=== PATIENT | female | born 1975 | race Caucasian/White ===

== ENCOUNTER 2016-10-19 04:57 | Observation (INO) | payer BC ==
--- NOTE | ~2016-10-19 | CO ---
Unit #: [id number] #: [id number] Patient: FLORIDA PERRY [id number] [facility]. [place], [place] [address] [id number] I MR#: [id number] NAME: FLORIDA PERRY ROOM: 334 Age: 41 Sex: F Admission Date: 10/19/2016 : 1975 Attending Physician: Mirela Kapadia M.D. Consultation Date: 10/19/2016 CONSULTATION REPORT CONSULT REQUESTING PHYSICIAN Dr. Kapadia. REASON FOR CONSULTATION Chest pain. HISTORY OF PRESENT ILLNESS This is a 41-year-old white female with past medical history of insomnia; anxiety; iron deficiency anemia; obesity, status post lap-band surgery; hypertension. She was admitted on 10/19/2016 with complaints of chest pain that occurred on Friday and were intermittent in nature; however, have gotten progressively more constant and more intense. Ms. Perry rates her pain as a sharp stabbing in nature and did have radiation to her left arm with associated shortness of breath and nausea. It began under her left anterior breast and as it increased in intensity and occurrence. She decided to be admitted for evaluation. On interview, she reports that she had a stress test 1 month ago; however, she cannot remember where that test was completed. After several prompts, she is somewhat sure it was done at [facility], as where her primary care provider's office is. Upon interview today on 10/19/2016, in room 334, she is chest pain free. EKG was checked on 10/19/2016, shows sinus tachycardia with a rate of 105, but otherwise within normal limits. Troponin was less than 0.05 x2. She tells me that chest pain just started on Friday, was not associated with any activity nor did any activity make it worse or better. She did report that it max the intensity of the chest pain peaked on Friday and lasted more than an hour while she was at work. She denies any palpitations and denies any syncope. She has no relieving factors, but she did tell me that she took three nitroglycerins which helped her little bit. PAST MEDICAL HISTORY 1. Insomnia. 2. Anxiety and depression. 3. Iron deficiency anemia. 4. Lap-band surgery. 5. Obesity. 6. Hypertension. 7. Menorrhagia, she has had multiple transfusions. PAST SURGICAL HISTORY Includes a lap-band in 2006 and a section. Unit #: [id number] #: [id number] Patient: FLORIDA PERRY MEDICATIONS Include Xanax 1 mg t.i.d. as needed and Lopressor 50 mg b.i.d. SOCIAL HISTORY Apparently, she is a never smoker and only drinks alcohol on very rare social occasions. She denies any illicit drug use. She has 4 children and lives in [place]. 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 FAMILY HISTORY Her father has congestive heart failure. Mother and siblings are generally healthy. REVIEW OF SYSTEMS 12-point review of systems was noted as above in the HPI. PHYSICAL EXAMINATION VITAL SIGNS: Temperature 97.3, heart rate 91, respirations 15, blood pressure 122/80. GENERAL: She is a well-developed, obese white female, who is in a very lethargic and sleepy state, in no acute distress upon interview. HEENT: Head is atraumatic and normocephalic. Pupils are equal, round, and reactive to light and accommodation with extraocular movements are intact. Oral mucosa membranes are pink and dry. NECK: Obese with no JVD noted. No lymphadenopathy and no bruits. LUNGS: Clear to auscultation with decreased respiratory effort. CARDIOVASCULAR: She is in a regular rate with regular rhythm. S1, S2 noted. No murmurs, gallops, or rubs are appreciated. ABDOMEN: Soft and obese with positive bowel sounds. EXTREMITIES: She is able to move all extremities with no obvious edema. Positive pedal pulses. DIAGNOSTIC STUDIES IMAGING STUDIES: A CT angiogram of the chest on 10/19/2016, impression: 1. Poor contrast opacity of the medium and small pulmonary arteries within the mid and peripheral lung zones, which cannot be assessed for PE on this study. There was no evidence of large central pulmonary embolism within the main pulmonary artery to jaivd region, central pulmonary arteries. No active disease in the chest. Heart size is normal. No pericardial effusion. Normal caliber thoracic aorta. 2. Linear scarring or atelectasis in the left lung base. Lungs are clear. Single view of the chest dated 10/19/2016 showed no acute abnormality. CARDIOVASCULAR STUDIES: EKG on 10/19/2016 showed sinus tach with a rate of 105, otherwise normal. LABORATORY RESULTS: Chemistry is unremarkable. There was an elevated ALT of 52 and alkaline phosphatase of 174. Troponin at 5:13 on 10/19/2016, which was less than 0.05. On repeat at 07:02 a.m., it was less than 0.05 and again at 13:15, was less than 0.03. PT was 10, INR was 1.0, D-dimer 542. WBC 5.7, hemoglobin 9.4, hematocrit 30.7, platelet count 267. A tox screen was positive for benzodiazepines and opiates. IMPRESSION 1. Atypical type chest pain. 2. Recent normal stress test. 3. Normal EKG. 4. Troponin less than 0.05 x2 and less than 0.03 x1. Unit #: [id number] #: [id number] Patient: FLORIDA PERRY 5. Obesity. 6. Status post lap-band surgery. 7. History of anxiety disorder. PLAN I will attempt to obtain records from [facility], where she had a recent what she thought was a negative stress test, and trend her troponins. Otherwise, she is stable at this standpoint from cardiovascular perspective. Anticipate discharge later today if troponins are negative. With recent cardiac workup, she will not need further ischemic workup. A long discussion was done by Dr. Rojas to the patient regarding her use of Xanax 1 mg t.i.d. and the need to possibly decrease that dose as she is very lethargic. She follows with Dr. Singer. We recommended her seeing Dr. Singer soon and decreasing her Xanax dose. She is severely anemic upon record review; however, today her hemoglobin was 9.4. This could be a contributing factor to any type of chest pain; however, it is probably likely musculoskeletal in nature. Her use of benzos including 1 mg Xanax t.i.d. is causing her to be overly self-medicated. The patient is agreeable to follow up with Dr. Singer and is agreeable to attempt to decrease her use of Xanax. Thank you for this consult. Dictated by... Clari Tubbs APRN for Abraham Adkins/david TD: 10/19/2016 17:24 JOB #: [id number] CC: [facility] CONSULTATION REPORT X X CONSULTATION REPORT
--- NOTE | ~2016-10-19 | CT16 ---
[facility] A Service of [facility] RADIOLOGY TEXT RESULTS PATIENT: FLORIDA DEL REAL LOCATION: [facility] 334-01 : [birth year] UNIT #: [id number] AGE: [address]: EUGENIA KAPADIA MD SEX: F ORDER DR: [id number] [facility]. [place], [place] [address] [id number] I MR#: [id number] Acc #: [id number] NAME: FLORIDA DEL REAL : 1975 SEX: F STUDY DATE/TIME: 10/19/2016 8:05 UNIT: C3A PCU ROOM: [facility] STUDY DESCRIPTION: CT Angio Chest for PE Attending Physician: Eugenia Kapadia M.D. Ordering Physician: Hernesto Low M.D. Primary Care Physician: Primary Care Physician No MEDICAL IMAGING REPORT This report is preliminary unless electronic signature is present EXAM CT chest with contrast, pulmonary arteriography protocol, 10/19/2016. HISTORY 41-year-old female in the ED complaining of 1-week history of left side chest pain. Elevated D-dimer. TECHNIQUE CT examination of the chest was performed with IV contrast using pulmonary arteriography protocol. 3-D CTA images of the pulmonary arteries were reformatted. This CT exam was performed with one or more of the following radiation dose reduction techniques: automatic exposure control, adjustment of mA and/or kV according to patient size, and iterative reconstruction. COMPARISON CTA chest, 04/21/2016. Ventilation/perfusion lung scans 04/21/2016 and 05/24/2016. FINDINGS There is poor contrast opacification of the pulmonary arteries. Medium and smaller pulmonary arteries within the mid and peripheral lung zones cannot be assessed on this exam. There is no evidence of a large central pulmonary embolism within the main pulmonary arteries or central hilar pulmonary arteries. Thoracic aorta is normal in caliber. Heart size normal. No pericardial effusion. Mild linear scarring or atelectasis left posterior lung base. The lungs are otherwise expanded and clear. There is no pleural effusion. No mass or adenopathy is seen within the mediastinum or pulmonary javid. No rib [facility] A Service of [facility] RADIOLOGY TEXT RESULTS PATIENT: FLORIDA DEL REAL LOCATION: C3A 334-01 : [birth year] UNIT #: [id number] AGE: [address]: EUGENIA KAPADIA MD SEX: F ORDER DR: fracture or other chest wall lesion. Limited upper abdominal images show a laparoscopic band device in place. Cholecystectomy. IMPRESSION 1. As on the previous study of 04/21/2016, there is poor contrast opacification of the medium and smaller pulmonary arteries within the mid and peripheral lung zones, these arteries cannot be assessed for PE on this study. There is no evidence of large central pulmonary embolism within the main pulmonary arteries or hilar region central pulmonary arteries. 2. No active disease in the chest. Heart size normal. No pericardial effusion. Normal-caliber thoracic aorta. 3. Linear scarring or atelectasis left lung base. Lungs clear. Dictated by... Lucius Walton M.D. THIS IS AN ELECTRONICALLY VERIFIED REPORT Lucius Walton M.D. at 10/19/2016 3:01 PM Laura TD: 10/19/2016 11:36 JOB #: [id number] MEDICAL IMAGING REPORT COPY
--- NOTE | ~2016-10-19 | DS ---
Unit #: [id number] #: [id number] Patient: FLORIDA PERRY [id number] [address] [address] [id number] I MR#: [id number] NAME: FLORIDA PERRY ROOM: 334 Age: 41 Sex: F Admission Date: 10/19/2016 : 1975 Discharge Date: 10/20/2016 Attending Physician: Mirela Kapadia M.D. Primary Care Physician: No Primary Care Physician DISCHARGE SUMMARY PRINCIPAL DIAGNOSES 1. Atypical chest pain, musculoskeletal in origin. 2. Iron deficiency anemia. 3. Mild leukopenia. 4. Anxiety and depression. 5. Morbid obesity. CONSULTANTS Dr. Rojas, cardiology. DIAGNOSTIC STUDIES CARDIOVASCULAR: Cardiolite stress test, reports of which are currently pending. IMAGING: Chest x-ray on October 19, 2016 with no acute findings. CT angiogram of the chest on October 19, 2016, which was negative for PE. CLINICAL HISTORY AND HOSPITAL COURSE Ms Perry is a 41-year-old female who presented to the emergency department with left-sided chest pain with serial negative troponins. Please refer to H and P for further details. The patient was placed in observation to rule out cardiac etiology. As noted above, troponins remained negative, and the patient has not had any arrhythmia on telemetry. Dr. Rojas was consulted, and the patient underwent Cardiolite stress test, which Dr. Rojas strongly suspects is negative. He feels the patient clinically is stable for discharge, and she will follow up in his office. I will note the patient does have some significant iron deficiency anemia, but hemoglobin is rather stable at 8.8. I am going to provide her some iron tablets upon discharge. DISCHARGE CONDITION Stable. DISCHARGE STATUS Discharge to home. DISCHARGE MEDICATIONS 1. Ferrous gluconate 324 mg b.i.d. for one month. 2. Xanax 1 mg p.o. t.i.d. p.r.n. anxiety. 3. Metoprolol tartrate 25 mg b.i.d. Unit #: [id number] #: [id number] Patient: FLORIDA PERRY DISCHARGE INSTRUCTIONS Patient was instructed to follow a heart healthy, low calorie diet. She can increase her activity as tolerated. FOLLOW-UP 1. Patient will follow up with her primary care provider next week. 2. She has been instructed to follow up with Dr. Rojas with a phone call in the office tomorrow to ensure Cardiolite was negative. Dictated by... Demetrice Hicks M.D. PRATIBHA/jaron TD: 10/21/2016 11:10 JOB #: [id number] DISCHARGE SUMMARY X Demetrice Hicks MD X DISCHARGE SUMMARY
--- NOTE | ~2016-10-19 | HP ---
Unit #: [id number] #: [id number] Patient: FLORIDA DEL REAL [id number] [address] [address] [id number] I MR#: [id number] NAME: FLORIDA DEL REAL ROOM: 334 Age: 41 Sex: F Admission Date: 10/19/2016 : 1975 Attending Physician: Mirela Kapadia M.D. Primary Care Physician: No Primary Care Physician HISTORY AND PHYSICAL CHIEF COMPLAINT Chest pain. HISTORY OF PRESENT ILLNESS The patient is a 41-year-old female with history of anxiety, iron deficiency anemia, lap band surgery, obesity, hypertension, brought to the emergency room complaining of the chest pain. The patient has been present for the last one week intermittently. The patient describes her pain as a sharp chest pain associated with shortness of breath. The patient has chest pain that is lasting four to five minutes and difference on the activity and is mostly with exertion. The patient has been to multiple emergency rooms in the past for the similar pain and was recommended for outpatient stress test. However, the presented today with complaint of worsening chest pain and preferred to stay in the hospital for the inpatient stress test. The patient stated the patient had a stress test many years ago and it was normal. The patient also complains of nausea and denies any vomiting. The patient denies any palpitation. The patient denies any diaphoresis. The patient had a high D-dimer and that led to the CT of the chest that showed no evidence of central PE and the patient is being admitted for the above reasons. PAST MEDICAL HISTORY History of anxiety, history of (1) seizures but only when she was taking Adderall, chronic anemia and hypertension. PAST SURGICAL HISTORY and lap band. 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 FAMILY HISTORY History of coronary artery disease in the family. ALLERGIES No known drug allergies. HOME MEDICATIONS 1. Xanax. 2. Lopressor. REVIEW OF SYMPTOMS A 14-point review of systems was performed and only pertinent positive Unit #: [id number] #: [id number] Patient: FLORIDA DEL REAL findings are described above, remaining are negative. PHYSICAL EXAMINATION GENERAL APPEARANCE: The patient is lying on her bed, not in acute distress. VITAL SIGNS: Temperature 97.4. Pulse 102. Respiratory rate 14. Blood pressure 125/76. Sating 96% at room air. HEENT: Head: Atraumatic, normocephalic. Pupils equal, round and reacting to light and accommodation. Extraocular movements are intact. NECK: Supple. No JVD. LUNGS: Decreased air entry at the bases. HEART: Regular rate and rhythm. ABDOMEN: Soft. Positive bowel sounds. EXTREMITIES: No cyanosis. No clubbing. No edema. NEUROLOGIC: Awake, alert, oriented. No gross focal motor deficit. DIAGNOSTIC STUDIES LABORATORY: Glucose 91, BUN 9, creatinine 0.7, sodium 138, potassium 3.6, chloride 108, bicarb 22, calcium 8.5, total protein 7.1, AST 34, ALT 52, alkaline phosphatase 174. Troponin less than 0.03. INR is one. WBC 5.7, hemoglobin 9.4, hematocrit 30.7, platelets 267. Urine tox is positive for benzodiazepines and opiates. CARDIOVASCULAR: EKG shows sinus tachycardia at a rate of 105 beats per minute, MD interval of 136, QTC 473. ASSESSMENT 1. Chest pain. 2. Anxiety. 3. Drug abuse. PLAN Admit the patient to observation with telemetry. Continue with the serial troponin. I appreciate Cardiology evaluation and schedule for the stress test in the morning and continue with Reglan for the nausea. The patient will have [place] for pain and repeat the labs again in the morning. Further recommendations will follow as more lab results are available. Dictated by Abraham Guillory TD: 10/19/2016 16:55 JOB #: [id number] HISTORY AND PHYSICAL X X HISTORY AND PHYSICAL
--- NOTE | ~2016-10-19 | TH ---
Unit #: [id number] #: [id number] Patient: FLORIDA DEL REAL [id number] [facility]. [address] [address] [id number] I MR#: [id number] NAME: FLORIDA DEL REAL : 1975 SEX: F STUDY DATE/TIME: UNIT: C3A PCU ROOM: [facility] STUDY DESCRIPTION: Lexiscan stress test - Nuclear Attending Physician: Mirela Kapadia M.D. Primary Care Physician: Primary Care Physician No CARDIOLOGY REPORT PROCEDURE PERFORMED Lexiscan Cardiolite stress test - Nuclear portion. PROCEDURE Using technetium 99m-labeled Cardiolite, rest and stress SPECT images were obtained. Multiple SPECT images were obtained in various views, including horizontal and vertical long axis and short axis views of the left ventricle. Images were obtained by gated SPECT method. The patient was administered 11.27 mCi of Cardiolite at rest. The patient was administered 28.7 mCi of Cardiolite after Lexiscan infusion was completed. On the stress images, there is normal perfusion noted. The rest images show normal perfusion. Comparing the rest and stress images, there is no stress-induced ischemia noted. The left ventricular ejection fraction is calculated to be 63%. There is no focal wall motion abnormality seen. CONCLUSION 1. No stress-induced ischemia noted. 2. The left ventricular ejection fraction is calculated to be 63%. 3. There is no focal wall motion abnormality seen. 4. Normal Lexiscan Cardiolite stress test. Dictated by... Abraham Gannon TD: 10/21/2016 16:20 JOB #: [id number] CARDIOLOGY REPORT X Kelyl Carreon MD <ELECTRONICALLY SIGNED> 03/15/17 1428 CARDIOLOGY REPORT
--- NOTE | ~2016-10-19 | EKG ---
PATIENT: FLORIDA DEL REAL UNIT #: [id number] Ventricular Rate: 105 BPM Atrial Rate: 105 BPM P-R Interval: 136 ms QRS Duration: 82 ms Q-T Interval: 358 ms QTC Calculation(Bezet): 473 ms P [place]: 37 degrees Calculated R [place]: 13 degrees Calculated T [place]: 24 degrees Diagnosis Line: Sinus tachycardia Diagnosis Line: Otherwise normal ECG Diagnosis Line: When compared with ECG of 21-MAY-2016 18:01, Diagnosis Line: No significant change was found Diagnosis Line: Confirmed by SHARI SOUZA MD ([id number]) on Diagnosis Line: 10/20/2016 10:37:20 PM INTERPRETING MD: KARY
--- NOTE | ~2016-10-19 | CR72 ---
[facility] A Service of [facility] RADIOLOGY TEXT RESULTS PATIENT: FLORIDA DEL REAL LOCATION: [facility] 334-01 : [birth year] UNIT #: [id number] AGE: [address]: EUGENIA DEWITT MD SEX: F ORDER DR: [id number] [facility] [address] [facility]. [place], [place] [address] [id number] MR#: [id number] Acc #: [id number] NAME: FLORIDA DEL REAL : 1975 SEX: F STUDY DATE/TIME: 10/19/2016 4:48 UNIT: [facility] ROOM: STUDY DESCRIPTION: CR Chest Single View Portable Attending Physician: Hernesto Low M.D. Ordering Physician: Carmita Torres M.D. Primary Care Physician: Primary Care Physician No MEDICAL IMAGING REPORT This report is preliminary unless electronic signature is present EXAM AP view of the chest COMPARISON October 18, 2016, September 20, 2016 and May 24, 2016. INDICATIONS 41-year-old female with dyspnea, chest pain for 1 week. History of hypertension. FINDINGS Cardiomediastinal silhouette is normal. No evidence of pneumothorax, pleural effusion or acute airspace disease. Calcified granuloma is noted in both lungs. These appear grossly stable from April 2016. No acute airspace disease. Normal cardiomediastinal silhouette. IMPRESSION No acute abnormality. Dictated by... Navid Hammond M.D. THIS IS AN ELECTRONICALLY VERIFIED REPORT Navid Hammond M.D. at 10/23/2016 7:42 AM Sharon TD: 10/19/2016 09:29 JOB #: [id number] MEDICAL IMAGING REPORT COPY
--- NOTE | ~2016-10-19 | ST ---
Unit #: [id number] #: [id number] Patient: FLORIDA DEL REAL [id number] [address] [address] [id number] I MR#: [id number] NAME: FLORIDA DEL REAL : 1975 SEX: F STUDY DATE/TIME: 10/20/2016 UNIT: C3A PCU ROOM: [facility] STUDY DESCRIPTION: Stress test Attending Physician: Mirela Kapadia M.D. Primary Care Physician: No Primary Care Physician CARDIOLOGY REPORT EXAM Lexiscan Cardiolite stress test. FINDINGS The baseline EKG shows normal sinus rhythm with a rate of 85 beats per minute, otherwise, normal. Lexiscan was injected immediately followed by Cardiolite. The patient had no complaints of chest pain, palpitations or dizziness. EKG during Lexiscan showed no ST-T wave abnormalities. No arrhythmias were seen. Blood pressure response 135/74 mmHg. At the end of recovery, blood pressure 132/74 mmHg. Please correlate these results with nuclear images. Dictated by... Remigio Pena A.P.R.N. for Abraham Adkins/beni TD: 10/20/2016 18:11 JOB #: [id number] CARDIOLOGY REPORT X eRmigio Pena APRN CARDIOLOGY REPORT
[~2016-10-19 04:57] MED LIST: FERROUS GLUCON324 MG PO; LOPRESSOR PO; PROTONIX PO; XANAX1 MG PO
[2016-10-19 05:15] LABS: POC - CKMB <1.0 ng/mL (0.0-7.9); POC - TROPONIN <0.05 ng/mL (<=0.05)
[2016-10-19 05:25] LABS: PARTIAL THROMBOPLASTIN TIME 25.5 SECONDS (23.5-31.3)
[2016-10-19 05:27] LABS: BASOPHIL# 0.1 X10e3 (0-0.3); BASOPHIL% 1.1 % (0-2.5); DIFF IND NO; EOSINOPHIL# 0.2 X10e3 (0-0.7); EOSINOPHIL% 2.7 % (0.0-7.0); HEMATOCRIT 30.7 % (35.0-45.0); HEMOGLOBIN 9.4 gm/dL (12.0-16.0); LYMPHOCYTE% 34.5 % (17.0-45.0); MEAN CELL VOLUME 66.9 FL (83-96); MEAN CORPUSCULAR HEMOGLOBIN 20.5 PG (28-34); MEAN CORPUSCULAR HGB CONC 30.7 g/dL (30-36); MEAN PLATELET VOLUME 8.6 FL (6.5-11.5); MONOCYTE# 0.5 X10e3 (0-1.0); MONOCYTE% 8.9 % (3.0-12.0); NEUTROPHIL% 52.8 % (40-75); PLATELET COUNT 267 X10e3 (140-420); RED BLOOD COUNT 4.59 X10e (3.90-5.30); WHITE BLOOD COUNT 5.7 X10e3 (4.0-10.5)
[2016-10-19 05:50] LABS: ALBUMIN SERUM 3.8 g/dL (3.5-5.0); ALKALINE PHOSPHATASE 174 U/L (32-92); ALT (SGPT) 52 U/L (10-40); AST (SGOT) 34 U/L (10-42); BILIRUBIN, DIRECT 0.1 mg/dL (0.0-0.2); BILIRUBIN,INDIRECT 0.6 mg/dL (0.0-0.9); BILIRUBIN,TOTAL 0.7 mg/dL (0.2-2.0); BLOOD UREA NITROGEN 9 mg/dL (9-23); BUN/CREATININE RATIO 12.85; CALCIUM SERUM 8.5 mg/dL (8.4-10.2); CARBON DIOXIDE 22 mmol/L (22-31); CHLORIDE 108 mmol/L (100-111); CREATININE SERUM 0.7 mg/dL (0.6-1.4); GLOM FILT RATE Estimated ABOVE60 mL/min (>60); GLUCOSE FASTING 91 mg/dL (70-110); POTASSIUM 3.6 mmol/L (3.5-5.1); PROTEIN TOTAL SERUM 7.1 g/dL (6.0-8.3); SODIUM 138 mmol/L (135-145)
[2016-10-19] MEDS ORDERED: LOPRESSOR PO (06:20)
[2016-10-19] MEDS ORDERED: PROTONIX PO (06:21)
[2016-10-19] MEDS ORDERED: XANAX1 MG PO (06:21)
[2016-10-19 07:04] LABS: POC - CKMB <1.0 ng/mL (0.0-7.9); POC - TROPONIN <0.05 ng/mL (<=0.05)
[2016-10-19 14:21] LABS: %MB 2.1 % (0.0-4.0); MB 1.8 ng/ml
[2016-10-19 14:33] LABS: AMPHETAMINE NEG (NEG); BARBITURATES NEG (NEG); BENZODIAZEPINES POS (NEG); COCAINE NEG (NEG); MARIJUANA NEG (NEG); OPIATES POS (NEG); TRICYCLIC ANTIDEPRESSANTS NEG (NEG); U METHADONE NEG (NEG)
[2016-10-19 20:11] LABS: %MB 2.3 % (0.0-4.0); MB 1.6 ng/ml
[2016-10-20 07:23] LABS: HEMATOCRIT 28.8 % (35.0-45.0); HEMOGLOBIN 8.8 gm/dL (12.0-16.0); MEAN CELL VOLUME 67.5 FL (83-96); MEAN CORPUSCULAR HEMOGLOBIN 20.7 PG (28-34); MEAN CORPUSCULAR HGB CONC 30.7 g/dL (30-36); MEAN PLATELET VOLUME 9.1 FL (6.5-11.5); RED BLOOD COUNT 4.26 X10e (3.90-5.30); WHITE BLOOD COUNT 3.7 X10e3 (4.0-10.5)
[2016-10-20 07:52] LABS: BLOOD UREA NITROGEN 9 mg/dL (9-23); CALCIUM SERUM 8.4 mg/dL (8.4-10.2); CARBON DIOXIDE 23 mmol/L (22-31); CHLORIDE 105 mmol/L (100-111); CREATININE SERUM 0.5 mg/dL (0.6-1.4); GLOM FILT RATE Estimated ABOVE60 mL/min (>60); GLUCOSE FASTING 77 mg/dL (70-110); SODIUM 137 mmol/L (135-145)
[2016-10-20] MEDS ORDERED: FERROUS GLUCON324 MG PO (16:17)
== END 2016-10-20 17:55 | disposition home or self-care (01) | DRG 313 ==
LOC: CED 04:57 → CEDOF 09:30 → C3A PCU 10:11
PROVIDERS: Emergency Medicine; Internal Medicine; Internal Medicine Cardiovascular Disease
DX: R07.89 Other chest pain (principal); J98.4 Other disorders of lung; I10 Essential (primary) hypertension; D50.9 Iron deficiency anemia, unspecified; D72.819 Decreased white blood cell count, unspecified; F41.9 Anxiety disorder, unspecified; F32.9 Major depressive disorder, single episode, unspecified; Z79.899 Other long term (current) drug therapy; F19.10 Other psychoactive substance abuse, uncomplicated; E66.01 Morbid (severe) obesity due to excess calories; R56.9 Unspecified convulsions; Z68.41 Body mass index [BMI] 40.0-44.9, adult; Z98.84 Bariatric surgery status; Z98.890 Other specified postprocedural states; Z82.49 Family history of ischemic heart disease and other diseases of the circulatory system
CPT/HCPCS: 71010; 71275; 78452; 80048; 80076; 80307; 82550; 82553; 84484; 84703; 85025; 85027; 85379; 85610; 85730; 93005; 93017; 94760; 96374; 96375; 96376; 99285; A9500; G0378; J1650; J1885; J2765; J2785; Q9967